=== PATIENT | female | born 1955 | race Caucasian/White ===

== ENCOUNTER 2025-01-09 12:04 | Emergency (ER) | payer MEDICARE, BC ==
[~2025-01-09] VITALS: Ht 162.6 cm; Wt 55.8 kg
[~2025-01-09 12:04] MED LIST: AMOXICILLIN500 MG PO; IBUPROFEN600 MG PO; MAGNESIUM250 MG PO; MAPAP325 MG PO; METRONIDAZOLE250 MG PO; VITAMIN C500 M1 PO; VITAMIN D1000 UNI1 PO
[2025-01-09] MEDS ORDERED: DIPHTH,PERTUSS(ACELL),TET VAC 0.5 ML SYRINGE IM ONE (14:30)
[2025-01-09 17:03] VITALS: BP 115/78
== END 2025-01-09 17:03 | disposition home or self-care (01) ==
LOC: ED 12:04
DX: S91.312A Laceration without foreign body, left foot, initial encounter (principal); W20.8XXA Other cause of strike by thrown, projected or falling object, initial encounter; Z88.2 Allergy status to sulfonamides; Z79.899 Other long term (current) drug therapy; Z23 Encounter for immunization
CPT/HCPCS: 12032; 73630; 90471; 90715; 99283-25